=== PATIENT | male | born 1960 | race Caucasian/White ===

== ENCOUNTER 2019-08-31 21:36 | Emergency (ER) | payer OTHER ==
[~2019-08-31] VITALS: Ht 185.4 cm; Wt 90.7 kg
[~2019-08-31 21:36] MED LIST: ALEVE220 MG PO; ANCEF IV; BACTRIM DS TAB1 EACH PO; FLEXERIL PO; KEFLEX500 MG PO; MUSCLE RELAXER; NAPROSYN500 MG PO; NORCO 5-325 TA1 EACH PO; PRILOSEC 20 MG20 MG PO
[2019-08-31] MEDS ORDERED: IBUPROFEN 800800 M1 PO (23:21)
[2019-08-31] MEDS ORDERED: OXYCODONE HCL 55 MG PO (23:21)
[2019-08-31] MEDS ORDERED: PENICILLIN VK500 MG PO (23:21)
[2019-08-31 23:50] VITALS: BP 128/90
== END 2019-08-31 23:51 | disposition home or self-care (01) ==
LOC: M.ERS 21:36
DX: K04.7 Periapical abscess without sinus (principal); I10 Essential (primary) hypertension; K21.9 Gastro-esophageal reflux disease without esophagitis; Z88.1 Allergy status to other antibiotic agents